=== PATIENT | female | born 1960 | race African-American/Black ===

== ENCOUNTER 2018-04-24 13:19 | Emergency (ER) | payer MEDICAID, OTHER ==
[~2018-04-24] VITALS: Ht 160 cm; Wt 63.2 kg
[~2018-04-24 13:19] MED LIST: BISM525O5; MYLANTA; PEPCID
[2018-04-24] MEDS ORDERED: OXYCODONE HCL/ACETAMINOPHEN 5/325MG TABLET PO ONE (14:45)
[2018-04-24 14:52] VITALS: BP 102/72
== END 2018-04-24 14:55 | disposition home or self-care (01) ==
LOC: ER 13:19
DX: M79.18 Myalgia, other site (principal); Z76.0 Encounter for issue of repeat prescription; J45.909 Unspecified asthma, uncomplicated; F41.9 Anxiety disorder, unspecified; F17.200 Nicotine dependence, unspecified, uncomplicated; Z90.49 Acquired absence of other specified parts of digestive tract; Z88.6 Allergy status to analgesic agent; Z79.899 Other long term (current) drug therapy
CPT/HCPCS: 99282